=== PATIENT | female | born 1950 | race Caucasian/White ===

== ENCOUNTER → 2021-07-15 | Outpatient (CLI) | payer MEDICARE, OTHER ==
[~2021-07-15] MED LIST: AMLODIPINE-BEN1 EAC2; DIFLUCAN150 M1 PO; KEFLEX500 MG PO; LOVASTATIN 20 M20 MG PO
--- NOTE | 2021-07-15 14:28 | 2DMMODE ---
[place] [address] 2 D/M-MODE ECHOCARDIOGRAM Name: MEGAN MORALEZ Room: [facility]#: [id number] Admission: 07/15/21 Attend Phys: Phill Knight Discharge: Date of : 50 Date of Service: 07/15/21 1428 Report #: [id number] THIS REPORT FOR: cc: Christiano Guevara,Christiano Barfield,Kenneth Shay MD [facility] ~ APPROVED REPORT Study performed: 07/15/2021 12:01:53 EXAM: Comprehensive 2D, Doppler, and color-flow Echocardiogram Patient Location: Out-Patient BSA: 1.53 HR: 94 bpm BP: 122/70 mmHg Other Information Study Quality: Excellent Indications Murmur 2D Dimensions IVSd: 12.06 (7-11mm) LVOT Diam: 18.73 (18-24mm) LVDd: 35.59 mm PWd: 8.77 (7-11mm) Ascending Ao: 30.60 (22-36mm) LVDs: 22.06 (25-40mm) Aortic Root: 24.04 mm Volumes Left Atrial Volume (Systole) LA ESV Index: 14.70 mL/m2 Aortic Valve AoV Peak Pankaj.: 2.32 m/s AO Peak Gr.: 21.53 mmHg LVOT Max P.08 mmHg AO Mean Gr.: 10.88 mmHg LVOT Mean P.06 mmHg LVOT Max V: 1.01 m/s AO V2 VTI: 41.15 cm LVOT Mean V: 0.66 m/s ZOE (VTI): 1.74 cm2 LVOT V1 VTI: 25.97 cm Mitral Valve E/A Ratio: 0.79 [place] [address] 2 D/M-MODE ECHOCARDIOGRAM Name: MEGAN MORALEZ Room: [facility]#: [id number] Admission: 07/15/21 Attend Phys: Phill Knight Discharge: Date of : 50 Date of Service: 07/15/21 1428 Report #: [id number] MV Decel. Time: 217.55 ms MV E Max Pankaj.: 0.78 m/s MV PHT: 63.09 ms MVA (PHT): 3.49 cm2 TDI E/Lateral E': 7.80 E/Medial E': 11.14 Medial E' Pankaj.: 0.07 m/s Lateral E' Pankaj.: 0.10 m/s Pulmonary Valve PV Peak Pankaj.: 1.02 m/s PV Peak Gr.: 4.14 mmHg Tricuspid Valve RAP Estimate: 5.00 mmHg TR Peak Gr.: 20.97 mmHg RVSP: 25.97 mmHg PA Pressure: 25.97 mmHg Left Ventricle The left ventricle is normal size. There is normal LV segmental wall motion. There is normal left ventricular wall thickness. Left ventricular systolic function is normal. The left ventricular ejection fraction is within the normal range. LVEF is 55-60%. Grade I - abnormal relaxation pattern. Right Ventricle The right ventricle is normal size. The right ventricular systolic function is normal. Atria The left atrium size is normal. The right atrium size is normal. Aortic Valve Aortic valve is calcified. No aortic regurgitation is present. Mild aortic stenosis. Mitral Valve The mitral valve is normal in structure. There is trace mitral valve regurgitation noted. No evidence of mitral valve stenosis. Tricuspid Valve The tricuspid valve is normal in structure. Mild tricuspid regurgitation. [place] [address] 2 D/M-MODE ECHOCARDIOGRAM Name: MEGAN MORALEZ Room: [facility]#: [id number] Admission: 07/15/21 Attend Phys: Phill Knight Discharge: Date of : 50 Date of Service: 07/15/21 1428 Report #: [id number] The pulmonary valve is normal in structure. There is no pulmonic valvular regurgitation. Great Vessels The aortic root is normal in size. IVC is normal in size and collapses >50% with inspiration. Pericardium There is no pericardial effusion. <Conclusion> LVEF is 55-60%. Mild aortic stenosis. <ELECTRONICALLY SIGNED> By: Kenneth Stone MD, [facility] 07/15/21 1428 [id number] Kenneth Stone MD, FACC /INF
== END ==
LOC: M.CRD 10:29
PROVIDERS: ATTEND Family Medicine
DX: I08.2 Rheumatic disorders of both aortic and tricuspid valves (principal); R01.1 Cardiac murmur, unspecified